=== PATIENT | male | born 1960 | race Caucasian/White ===

== ENCOUNTER 2017-08-22 08:58 | Observation (INO) | payer BC, OTHER ==
--- NOTE | 2017-08-22 09:53 | ER Document Report ---
ED General - General Chief Complaint: Chest Pain Stated Complaint: SHOULDER PAIN Time Seen by Provider: 08/22/17 09:47 Mode of Arrival: Medic Information source: Patient Notes: 57 yo morbidly obese, ex smoker, non hyperlipedemic, htn, pre diabetic, c/o left scapular chest pain, and shortness of breath, radiating into left arm since 2400 last night, couldn't get comfortable. When woke up this am at 0600, pain was worse. At 1800 disortiented felt out of sorts had planned to head home and ended up at his daughters house. Chest tightness left retrosternal and cold sweats intermittently during the day, episodes lasting few seconds. PSH: Negative FMH: grandfather [place], dad pacemaker, CVA. NKA, occ. alcohol, no drugs. TRAVEL OUTSIDE OF THE [place] IN LAST 30 DAYS: No - Related Data Allergies/Adverse Reactions: No Known Allergies Allergy (Verified 08/22/17 10:07) Past Medical History - General Information source: Patient - Social History Smoking Status: Former Smoker Chew tobacco use (# tins/day): No Frequency of alcohol use: Occasional Drug Abuse: None Lives with: Spouse/Significant other Family History: CAD, CVA - Past Medical History Cardiac Medical History: Reports: Hx Hypertension Endocrine Medical History: Reports: Other - pre diabetes Renal/ Medical History: Reports: Hx Kidney Stones. Denies: Hx Peritoneal Dialysis Musculoskeltal Medical History: Reports Hx Arthritis Surgical Hx: Negative - Immunizations Hx Diphtheria, Pertussis, Tetanus Vaccination: Yes - 2014 Review of Systems - Review of Systems Constitutional: No symptoms reported EENT: No symptoms reported Cardiovascular: See HPI Respiratory: No symptoms reported Gastrointestinal: No symptoms reported Genitourinary: No symptoms reported Male Genitourinary: No symptoms reported Musculoskeletal: See HPI Skin: No symptoms reported Hematologic/Lymphatic: No symptoms reported Neurological/Psychological: No symptoms reported Physical Exam - Vital signs Vitals: Temp Pulse Resp BP Pulse Ox 97.6 F 78 16 138/99 H 93 08/22/17 09:15 08/22/17 09:15 08/22/17 09:15 08/22/17 09:15 08/22/17 09:15 Interpretation: Normal, Hypertensive - General General appearance: Appears well, Alert In distress: None - HEENT Head: Normocephalic, Atraumatic Eyes: Normal Pupils: PERRL Neck: No: Lymphadenopathy - Respiratory Respiratory status: No respiratory distress Chest status: Nontender Breath sounds: Normal Chest palpation: Normal - Cardiovascular Rhythm: Regular Heart sounds: Normal auscultation Murmur: No - Abdominal Inspection: Morbidly Obese Distension: No distension Bowel sounds: Normal Tenderness: Nontender Organomegaly: No organomegaly Notes: reducible umbilical hernia - Back Back: Normal, Nontender. No: Tender - Extremities General upper extremity: Normal inspection, Nontender, Normal color, Normal ROM , Normal temperature General lower extremity: Normal inspection, Nontender, Normal color, Normal ROM , Normal temperature, Normal weight bearing. No: Sarthak's sign - Neurological Neuro grossly intact: Yes Cognition: Normal Orientation: AAOx4 Torie Coma Scale Eye Opening: Spontaneous Torie Coma Scale Verbal: Oriented Torie Coma Scale Motor: Obeys Commands [place] Coma Scale Total: 15 Speech: Normal Motor strength normal: LUE, RUE, LLE, RLE Sensory: Normal - Psychological Associated symptoms: Normal affect, Normal mood - Skin Skin Temperature: Warm Skin Moisture: Dry Skin Color: Normal Skin irregularity: negative: Rash Course - Re-evaluation Re-evalutation: 08/22/17 13:[address] Ware, will admit to [facility] observation bed 08/22/17 13:05 Chest x-ray shows possible early vascular congestion, EKG was normal sinus rhythm patient is willing to be admitted. - Vital Signs Vital signs: Temp Pulse Resp BP Pulse Ox 97.6 F 78 15 158/94 H 96 08/22/17 09:15 08/22/17 09:15 08/22/17 12:52 08/22/17 12:52 08/22/17 12:59 - Laboratory Result Diagrams: 08/22/17 09:52 08/22/17 09:52 Laboratory results interpreted by me: 08/22/17 08/22/17 08/22/17 09:52 09:52 09:52 RDW 15.4 H BUN 23 H Glucose 117 H Creatine Kinase 187 H Discharge - Discharge Clinical Impression: chest pain Condition: Good Disposition: ADMITTED OBSERVATION Admitting Provider: Hospitalist Unit Admitted: Telemetry
--- NOTE | 2017-08-22 10:02 | EKG REPORT ---
SEVERITY:- ABNORMAL ECG - SINUS RHYTHM FIRST DEGREE AV BLOCK NONSPECIFIC INTRAVENTRICULAR CONDUCTION DELAY ABNRM R PROG, CONSIDER ASMI OR LEAD PLACEMENT : Confirmed by: Adrienne Gay MD 22-Aug-2017 10:01:47
[2017-08-22 10:08] LABS: ABSOLUTE EOSINOPHILS # (AUTO) 0.1 10^3/uL (0.0-0.6); ABSOLUTE LYMPHOCYTES (AUTO) 1.2 10^3/uL (0.5-4.7); ABSOLUTE MONOCYTES (AUTO) 0.5 10^3/uL (0.1-1.4); ABSOLUTE NEUT (AUTO) 6.1 10^3/uL (1.7-8.2); BASOPHILS % (AUTO) 0.4 % (0-2); EOSINOPHILS % (AUTO) 0.8 % (0-6); HEMOGLOBIN 15.1 g/dL (13.5-17.0); HGB HCT DIFFERENCE 1.3; MEAN CORPUSCULAR HEMOGLOBIN 29.6 pg (27.0-33.4); MEAN CORPUSCULAR HGB CONC 34.3 g/dL (32.0-36.0); MEAN CORPUSCULAR VOLUME 86 fl (80-97); MONOCYTES % (AUTO) 6.1 % (3-13); RED CELL DISTRIBUTION WIDTH 15.4 % (11.5-14.0); SEGMENTED NEUTROPHILS % (AUTO) 77.7 % (42-78); WHITE BLOOD COUNT 7.9 10^3/uL (4.0-10.5)
[2017-08-22 10:36] LABS: ALANINE AMINOTRANSFERASE 46 U/L (21-72); ALBUMIN 4.4 g/dL (3.5-5.0); ALKALINE PHOSPHATASE 64 U/L (38-126); ANION GAP 9 (5-19); ASPARTATE AMINO TRANSFERASE 25 U/L (17-59); BILIRUBIN,DIRECT 0.4 mg/dL (0.0-0.4); BILIRUBIN,TOTAL 0.8 mg/dL (0.2-1.3); BLOOD UREA NITROGEN 23 mg/dL (7-20); CALCIUM 9.7 mg/dL (8.4-10.2); CARBON DIOXIDE 28 mmol/L (22-30); CHLORIDE 103 mmol/L (98-107); CREATININE RESULT 0.83 mg/dL (0.52-1.25); GLUCOSE 117 mg/dL (75-110); POTASSIUM 4.8 mmol/L (3.6-5.0); SODIUM 139.8 mmol/L (137-145); TOTAL PROTEIN 7.1 g/dL (6.3-8.2)
--- NOTE | 2017-08-22 10:44 | RADIOLOGY REPORT (SQ) ---
EXAM DESCRIPTION: CHEST PA/LAT COMPLETED DATE/TIME: 08/22/2017 10:33 am REASON FOR STUDY: cp COMPARISON: None. EXAM PARAMETERS: NUMBER OF VIEWS: two views TECHNIQUE: Digital Frontal and Lateral radiographic views of the chest acquired. RADIATION DOSE: NA LIMITATIONS: none FINDINGS: LUNGS AND PLEURA: No opacities, masses or pneumothorax. No pleural effusion. MEDIASTINUM AND HILAR STRUCTURES: No masses or contour abnormalities. HEART AND VASCULAR STRUCTURES: Heart normal size. Central vascular prominence. BONES: No acute findings. HARDWARE: None in the chest. OTHER: No other significant finding. IMPRESSION: POSSIBLE EARLY VASCULAR CONGESTION. NO OTHER SIGNIFICANT FINDINGS. TECHNICAL DOCUMENTATION: JOB ID: [id number] [employer]- All Rights Reserved
[2017-08-22] MEDS ORDERED: ASPIRIN 81 MG TABLET, CHEWABLE PO ONE (13:10)
[2017-08-22] MEDS ORDERED: NITROGLYCERIN 0.4 MG/TAB 25 TAB/BOTTLE SL PRN (13:11)
[2017-08-22] MEDS ORDERED: ONDANSETRON HCL INJ/PF 4 MG/2 ML SDV IV PRN (13:20)
[2017-08-22] MEDS ORDERED: MUPIROCIN 2% OINTMENT 22 GM TP PRN (13:24)
[2017-08-22] MEDS ORDERED: LANSOPRAZOLE 30 MG TAB.RAP.DR PO ONE (13:45)
[2017-08-22] MEDS ORDERED: NITROGLYCERIN 2% OINTMENT 1 GM PACKET TP ONE (13:45)
[2017-08-22] MEDS ORDERED: LORAZEPAM 1 MG TABLET PO PRN (13:45)
[2017-08-22] MEDS ORDERED: TRAMADOL HCL 50 MG TABLET PO PRN (13:45)
[2017-08-22] MEDS ORDERED: FUROSEMIDE INJ/PF 20 MG/2 ML SDV IV ONE (14:30)
--- NOTE | 2017-08-22 14:30 | PDOC H&P ---
History of Present Illness Admission Date/PCP: 08/22/17 ARIC Wong History of Present Illness: CARMELO SIDHU is a 57 year old male with a history of hypertension, untreated sleep apnea, hypertension, borderline diabetes mellitus, anxiety, chronic pain who presents emergency department with several weeks of chest pain. He reports that yesterday he began having an episode of disorientation which she describes as an out of body experience. He reports that he normally does sleep in a recliner hospital bed. He reports that he has been having substernal chest pain that is a pressure-like sensation that radiates down his left arm. He reports that it began last night to get worse. He took his normal medications and this did not help he tried ice and this also did not help. He reports it was worse at about 6 AM this morning. It was associated with some shortness of breath, dyspnea on exertion, and he has noticed some increased leg swelling, but reports that his legs have been more swollen over the past week but today are somewhat improved. He does report he has had an outpatient echo, but cannot recall where he had it done at. He also reports recent lab work from his primary care physician. Patient is referred to hospital service for chest pain Past Medical History Cardiac Medical History: Reports: Hypertension Pulmonary Medical History: Reports: Sleep Apnea Endocrine Medical History: Reports: Obesity, Other - pre diabetes Renal/ Medical History: Reports: Nephrolithiasis Musculoskeltal Medical History: Reports: Arthritis, Other - Chronic pain Past Surgical History Past Surgical History: Reports: None Social History Lives with: Spouse/Significant other Smoking Status: Former Smoker Frequency of Alcohol Use: None Amount of Alcoholic Beverages Per Day: Quit drinking 28 years ago Drugs: Other - cbd oil Hx Prescription Drug Abuse: No - Advance Directive Resuscitation Status: Full Code Surrogate healthcare decision maker:: cheo, Family History Family History: CAD, CVA Parental Family History Reviewed: Yes Children Family History Reviewed: Yes Sibling(s) Family History Reviewed.: Yes Medication/Allergy Home Medications: Benazepril HCl 40 mg PO DAILY 08/22/17 Buspirone HCl 10 mg PO DAILY 08/22/17 Diclofenac Sodium [Diclofenac Sodium ER] 100 mg PO DAILY 08/22/17 Doxazosin Mesylate 4 mg PO DAILY 08/22/17 Furosemide [Lasix] 20 mg PO DAILY 08/22/17 Lorazepam 1 mg PO TID PRN 08/22/17 Mupirocin [Bactroban 2% Ointment 22 gm] 1 applic TP TID PRN 08/22/17 Tramadol HCl [Ultram 50 mg Tablet] 50 mg PO TID PRN 08/22/17 Allergies/Adverse Reactions: No Known Allergies Allergy (Verified 08/22/17 10:07) Review of Systems Constitutional: PRESENT: weight gain - 85lbs due to inactivity. ABSENT: chills , fever(s), headache(s), night sweats, weakness, weight loss Eyes: ABSENT: visual disturbances Ears: ABSENT: hearing changes Cardiovascular: PRESENT: chest pain, dyspnea on exertion, edema, orthropnea. ABSENT: palpitations Respiratory: PRESENT: dyspnea. ABSENT: cough, hemoptysis, sputum Gastrointestinal: ABSENT: abdominal pain, constipation, diarrhea, dysphagia, heartburn, hematemesis, hematochezia, melena, nausea, vomiting Genitourinary: ABSENT: dysuria, hematuria, nocturia Musculoskeletal: PRESENT: back pain. ABSENT: joint swelling Integumentary: ABSENT: rash, wounds Neurological: ABSENT: abnormal gait, abnormal speech, confusion, dizziness, focal weakness, syncope Psychiatric: ABSENT: anxiety, depression, homidical ideation, suicidal ideation Endocrine: ABSENT: cold intolerance, heat intolerance, polydipsia, polyuria Hematologic/Lymphatic: ABSENT: easy bleeding, easy bruising Physical Exam Vital Signs: Temp Pulse Resp BP Pulse Ox 97.6 F 78 15 158/94 H 96 08/22/17 09:15 08/22/17 09:15 08/22/17 12:52 08/22/17 12:52 08/22/17 12:59 Intake & Output 08/21/17 08/22/17 08/23/17 06:59 06:59 06:59 Weight 163.293 kg General appearance: PRESENT: mild distress, morbidly obese, well-developed, well -nourished Head exam: PRESENT: atraumatic, normocephalic Eye exam: PRESENT: conjunctiva pink, EOMI, PERRLA. ABSENT: conjunctival injection, scleral icterus Ear exam: PRESENT: normal external ear exam Mouth exam: PRESENT: moist, tongue midline Neck exam: ABSENT: JVD, lymphadenopathy, thyromegaly, tracheal deviation Respiratory exam: PRESENT: clear to auscultation wendi, unlabored. ABSENT: accessory muscle use, rales, rhonchi, tachypnea, wheezes Cardiovascular exam: PRESENT: RRR, +S1, +S2. ABSENT: diastolic murmur, gallop, rubs, systolic murmur Pulses: PRESENT: normal dorsalis pedis pul Vascular exam: PRESENT: normal capillary refill GI/Abdominal exam: PRESENT: normal bowel sounds, soft. ABSENT: distended, firm , guarding, mass, organolmegaly, rebound, rigid, tenderness Rectal exam: PRESENT: deferred Extremities exam: PRESENT: full ROM, +1 edema. ABSENT: calf tenderness, clubbing Neurological exam: PRESENT: alert, awake, oriented to person, oriented to place , oriented to time, oriented to situation, CN II-XII grossly intact. ABSENT: motor sensory deficit Psychiatric exam: PRESENT: appropriate affect, normal mood. ABSENT: homicidal ideation, suicidal ideation Skin exam: PRESENT: dry, intact, warm. ABSENT: cyanosis, rash Results Laboratory Results: 08/22/17 09:52 08/22/17 09:52 08/22/17 08/22/17 09:52 09:52 WBC 7.9 RBC 5.10 Hgb 15.1 Hct 44.0 MCV 86 MCH 29.6 MCHC 34.3 RDW 15.4 H Plt Count 201 Seg Neutrophils % 77.7 Lymphocytes % 15.0 Monocytes % 6.1 Eosinophils % 0.8 Basophils % 0.4 Absolute Neutrophils 6.1 Absolute Lymphocytes 1.2 Absolute Monocytes 0.5 Absolute Eosinophils 0.1 Absolute Basophils 0.0 Sodium 139.8 Potassium 4.8 Chloride 103 Carbon Dioxide 28 Anion Gap 9 BUN 23 H Creatinine 0.83 Est GFR ( Amer) > 60 Est GFR (Non-Af Amer) > 60 Glucose 117 H Calcium 9.7 Total Bilirubin 0.8 AST 25 ALT 46 Alkaline Phosphatase 64 Total Protein 7.1 Albumin 4.4 08/22/17 08/22/17 08/22/17 09:52 09:52 09:52 Creatine Kinase 187 H CK-MB (CK-2) 1.94 Troponin I < 0.012 Impressions: Chest X-Ray 08/22/17 09:47 IMPRESSION: POSSIBLE EARLY VASCULAR CONGESTION. NO OTHER SIGNIFICANT FINDINGS. Assessment & Plan - Diagnosis (1) Chest pain Qualifiers: Chest pain type: precordial pain Qualified Code(s): R07.2 - Precordial pain Is this a current diagnosis for this admission?: Yes Plan: Place patient on telemetry observation and monitor serial cardiac enzymes. Patient is on benazepril, add aspirin, metoprolol, nitroglycerin. Cardiolite stress test in the a.m. if cardiac enzymes are negative. Will attempt to obtain outside echocardiogram. (2) Borderline diabetes mellitus Is this a current diagnosis for this admission?: Yes Plan: Carb control diet (3) Hypertension Qualifiers: Hypertension type: essential hypertension Qualified Code(s): I10 - Essential (primary) hypertension Is this a current diagnosis for this admission?: Yes Plan: Continue home doxazosin, Lasix, benazepril. (4) Obstructive sleep apnea Is this a current diagnosis for this admission?: Yes Plan: Patient reports that he was previously diagnosed with severe obstructive sleep apnea. He reports he was intolerant to the mask at that time. Since that time patient has gained 85 pounds. Patient will require outpatient sleep study. (5) Chronic pain Qualifiers: Chronic pain type: chronic pain syndrome Qualified Code(s): G89.4 - Chronic pain syndrome Is this a current diagnosis for this admission?: Yes Plan: Continue tramadol (6) Anxiety disorder Qualifiers: Anxiety disorder type: unspecified anxiety disorder Qualified Code(s): F41.9 - Anxiety disorder, unspecified Is this a current diagnosis for this admission?: Yes Plan: Continue home Ativan (7) Morbid obesity with BMI of 50.0-59.9, adult Is this a current diagnosis for this admission?: Yes Plan: Dietary consult - Time Time Spent: 50 to 70 Minutes Medications reviewed and adjusted accordingly: Yes Anticipated discharge: Home Within: within 48 hours - Inpatient Certification Based on my medical assessment, after consideration of the patient's comorbidities, presenting symptoms, or acuity I expect that the services needed warrant INPATIENT care.: No I certify that my determination is in accordance with my understanding of Medicare's requirements for reasonable and necessary INPATIENT services [42 CFR 412.3e].: No Medical Necessity: Need For Continuous Telemetry Monitoring Post Hospital Care: D/C Teacher Specialist Documentation
[2017-08-22 15:34] LABS: URINE BARBITURATES SCREEN NEGATIVE; URINE METHADONE SCREEN NEGATIVE; URINE OPIATES LOW NEGATIVE; URINE PHENCYCLIDINE SCREEN NEGATIVE
[2017-08-22 17:19] LABS: CREATINE KINASE MB 4.24 ng/mL (<4.55)
[2017-08-22 17:27] LABS: TROPONIN I 0.436 ng/mL
[2017-08-22] MEDS ORDERED: DOCUSATE SODIUM 100 MG CAPSULE PO SCH (18:00)
[2017-08-22] MEDS ORDERED: NITROGLYCERIN 2% OINTMENT 1 GM PACKET TP SCH (18:00)
[2017-08-22] MEDS ORDERED: HEPARIN SOD (PORCINE) 1,000 UNIT/ML 10 ML VIAL IV PRN (18:46)
[2017-08-22] MEDS ORDERED: HEPARIN SODIUM,PORCINE/D5W 25,000 UNIT/250 ML RTUINJ IV PRN (18:46)
[2017-08-22] MEDS ORDERED: MORPHINE SULFATE 10 MG/ML INJ IV PRN (19:02)
[2017-08-22 19:14] LABS: ABSOLUTE EOSINOPHILS # (AUTO) 0.1 10^3/uL (0.0-0.6); ABSOLUTE LYMPHOCYTES (AUTO) 1.9 10^3/uL (0.5-4.7); ABSOLUTE MONOCYTES (AUTO) 0.6 10^3/uL (0.1-1.4); ABSOLUTE NEUT (AUTO) 5.9 10^3/uL (1.7-8.2); BASOPHILS % (AUTO) 0.6 % (0-2); EOSINOPHILS % (AUTO) 1.5 % (0-6); HEMATOCRIT 42.2 % (37.9-51.0); HEMOGLOBIN 14.3 g/dL (13.5-17.0); HGB HCT DIFFERENCE 0.7; LYMPHOCYTES % (AUTO) 22.1 % (13-45); MEAN CORPUSCULAR HEMOGLOBIN 29.3 pg (27.0-33.4); MEAN CORPUSCULAR HGB CONC 33.9 g/dL (32.0-36.0); MEAN CORPUSCULAR VOLUME 86 fl (80-97); MONOCYTES % (AUTO) 6.9 % (3-13); RED BLOOD COUNT 4.88 10^6/uL (4.35-5.55); SEGMENTED NEUTROPHILS % (AUTO) 68.9 % (42-78); WHITE BLOOD COUNT 8.6 10^3/uL (4.0-10.5)
[2017-08-22] MEDS ORDERED: HEPARIN SOD (PORCINE) 1,000 UNIT/ML 10 ML VIAL IV ONE (19:30)
[2017-08-22 19:31] LABS: PROTHROMBIN TIME 13.4 SEC (11.4-15.4)
[2017-08-22 19:32] LABS: PARTIAL THROMBOPLASTIN TIME 31.7 SEC (23.5-35.8)
--- NOTE | 2017-08-22 20:01 | PDOC CONSULTATION ---
Consultation Consult Date: 08/22/17 Attending physician:: MICKEY TIDWELL Consult reason:: Chest pain History of Present Illness Admission Date/PCP: 08/22/17 13:11 Patient complains of: Chest pain and shortness of breath History of Present Illness: CARMELO SIDHU is a 57 year old male with a history of hypertension, untreated sleep apnea, hypertension, borderline diabetes mellitus, anxiety, chronic pain who presents emergency department with several weeks of chest pain. He reports that yesterday he began having an episode of disorientation which she describes as an out of body experience. He reports that he normally does sleep in a recliner hospital bed. He reports that he has been having substernal chest pain that is a pressure-like sensation that radiates down his left arm. He reports that it began last night to get worse. He took his normal medications and this did not help he tried ice and this also did not help. He reports it was worse at about 6 AM this morning. It was associated with some shortness of breath, dyspnea on exertion, and he has noticed some increased leg swelling, but reports that his legs have been more swollen over the past week but today are somewhat improved. He does report he has had an outpatient echo, but cannot recall where he had it done at. He also reports recent lab work from his primary care physician. Patient denied any family history of premature coronary artery disease but claims that there is history of pulmonary embolism in his mother. Past Medical History Cardiac Medical History: Reports: Hypertension Pulmonary Medical History: Reports: Sleep Apnea Endocrine Medical History: Reports: Obesity, Other - pre diabetes Renal/ Medical History: Reports: Nephrolithiasis Musculoskeltal Medical History: Reports: Arthritis, Other - Chronic pain Psychiatric Medical History: Denies: Depression Past Surgical History Past Surgical History: Reports: None Social History Information Source: Patient Lives with: Spouse/Significant other Smoking Status: Former Smoker Last Time Smoked: 1989 Frequency of Alcohol Use: None Drugs: Other - cbd oil Hx Prescription Drug Abuse: No - Advance Directive Resuscitation Status: Full Code Family History Family History: CAD, CVA, Other - Pulmonary embolism Parental Family History Reviewed: Yes Children Family History Reviewed: Yes Sibling(s) Family History Reviewed.: Yes Medication/Allergy Home Medications: Benazepril HCl 40 mg PO DAILY 08/22/17 Buspirone HCl 10 mg PO BID 09/28/17 Compound 1 applic TP QID 08/22/17 Diclofenac Sodium [Diclofenac Sodium ER] 100 mg PO DAILY 08/22/17 Doxazosin Mesylate 4 mg PO DAILY 08/22/17 Furosemide [Lasix] 20 mg PO DAILY 08/22/17 Lorazepam 1 mg PO TID PRN 08/22/17 Mupirocin [Bactroban 2% Ointment 22 gm] 1 applic TP TID 08/22/17 Tramadol HCl [Ultram 50 mg Tablet] 50 mg PO TID PRN 08/22/17 Allergies/Adverse Reactions: No Known Allergies Allergy (Verified 08/22/17 10:07) Review of Systems Review of Systems: Please see history of present illness and past medical history as wall. Constitutional: No fever or chills reported. Head : No recent chronic headaches, recent head injury. Eyes: No recent eye pain, diplopia, redness, discharge, acute visual changes. Ears: No recent chronic ear pain, acute hearing loss, ear discharge. Oral cavity: No recent ulcerations, bleeding, oral cavity discomfort. Neck: No recent acute neck pain reported. Hematologic: No recent easy bruising or bleeding or hematologic malignancy reported. Lymphatic: No recent lymphatic malignancy, chronic lymphadenopathy reported yet Cardiovascular system review: See history of present illness. Respiratory system review: No recent chronic cough, hemoptysis, blood clots in the lungs reported. Mild Shortness of breath on exertion. Intermittent pedal edema. Gastrointestinal system review: Negative for any recent acute or chronic abdominal pain, hematemesis, melena, recent change in bowel habits. Genitourinary system review: No recent acute or chronic hematuria, flank pain, UTI etc. reported. Skin system review: Negative for any recent abnormal bruising, no rash, no pruritus reported. Neurologic: No prior history of strokes, mini strokes, seizure disorder. Psychologic: No history of major psychosis or major depression reported. Musculoskeletal: Minor aches and pains reported. No acute joint swelling reported. Endocrine: No recent polyuria, polydipsia, recent heat or cold intolerance. History of loud snoring, difficulty falling asleep and staying asleep. Physical Exam Vital Signs: Temp Pulse Resp BP Pulse Ox 97.7 F 73 20 134/85 H 97 08/22/17 15:56 08/22/17 16:00 08/22/17 15:56 08/22/17 15:56 08/22/17 17:44 Intake & Output 08/21/17 08/22/17 08/23/17 06:59 06:59 06:59 Intake Total 0 Balance 0 Exam: GENERAL: well-nourished and in no acute distress. Alert and oriented x3 HEAD: Atraumatic, normocephalic. EYES: Pupils equal round and reactive to light, extraocular movements intact, sclera anicteric, conjunctiva are normal. ENT: TMs normal, nares patent, oropharynx clear without exudates. Moist mucous membranes. No oral ulcerations or bleeding gums noted NECK: supple without lymphadenopathy. Trachea is central. No cervical or axillary lymphadenopathy noted. Carotids are 2+, JVD WNL LUNGS: Respiration seems nonlabored, no significant accessory muscle action noted. Breath sounds clear to auscultation bilaterally and equal noted. No wheezes rales or rhonchi noted. No significant dullness noted on percussion. CHEST: Palpation of the chest wall shows no significant chest wall tenderness. No other significant abnormalities noted. HEART: Duff FACULTY RESEARCH ASSISTANT, No PSH, 1/6 RON aortic area, 1/6 ramirez systolic murmur mitral area, no rubs, no gallops. ABDOMEN: Soft, no significant tenderness appreciated, normoactive bowel sounds. No guarding, no rebound. No rigidity noted . No masses appreciated. EXTREMITIES: Pedal pulses are 1-2+, no calf tenderness noted. No clubbing or cyanosis. 1+ pedal edema noted NEUROLOGICAL: Focused neurological exam showed no significant neurologic deficit. Normal speech, no focal weakness appreciated. PSYCH: Normal mood, normal affect. Judgment and insight within normal limits. SKIN: No significant ecchymosis, rash, ulcerations or signs of pruritus noted. MUSCULOSKELETAL EXAM: No significant joint swelling noted. Results Laboratory Results: 08/22/17 19:03 08/22/17 19:03 WBC 8.6 RBC 4.88 Hgb 14.3 Hct 42.2 MCV 86 MCH 29.3 MCHC 33.9 RDW 15.0 H Plt Count 188 Seg Neutrophils % 68.9 Lymphocytes % 22.1 Monocytes % 6.9 Eosinophils % 1.5 Basophils % 0.6 Absolute Neutrophils 5.9 Absolute Lymphocytes 1.9 Absolute Monocytes 0.6 Absolute Eosinophils 0.1 Absolute Basophils 0.0 08/22/17 16:30 CK-MB (CK-2) 4.24 Troponin I 0.436 EKG Comments: Sinus rhythm, no acute ST-T wave changes noted. Impressions: Chest X-Ray 08/22/17 09:47 IMPRESSION: POSSIBLE EARLY VASCULAR CONGESTION. NO OTHER SIGNIFICANT FINDINGS. Assessment & Plan - Diagnosis (1) NSTEMI (non-ST elevated myocardial infarction) Is this a current diagnosis for this admission?: Yes (2) Chest pain Qualifiers: Chest pain type: precordial pain Qualified Code(s): R07.2 - Precordial pain Is this a current diagnosis for this admission?: Yes (3) Hypertension Qualifiers: Hypertension type: essential hypertension Qualified Code(s): I10 - Essential (primary) hypertension Is this a current diagnosis for this admission?: Yes (4) Morbid obesity with BMI of 50.0-59.9, adult Is this a current diagnosis for this admission?: Yes (5) Obstructive sleep apnea Is this a current diagnosis for this admission?: Yes (6) Borderline diabetes mellitus Is this a current diagnosis for this admission?: Yes - Notes Notes: Non-STEMI: Patient does have a suggestive history and also positive troponin I elevation. Patient however does not have any significant EKG changes and currently chest pain-free. Differential diagnosis discussed. Patient is on transfer list to [facility] for cardiac cath. Patient's medical regimen reviewed. Continue current regimen. It may be worthwhile to consider ruling out pulmonary embolism since patient does have risk factors especially in the absence of significant EKG changes and history of intermittent pedal edema. However this could be performed at the other institution if needed. Chest pain: Currently resolved. Continue current regimen. Most likely related to coronary artery disease and non-STEMI. Hypertension: Reasonably well controlled. Blood pressure goal in this patient is 135/85 or less. This was discussed with the patient. Currently blood pressure under reasonable control. Better medication for this patient are JOSEPH inhibitor/ARB/beta freda etc. discussed side effects of uncontrolled hypertension and also severe hypotension. Obesity: Patient encouraged in weight loss. Obstructive sleep apnea: Patient will benefit from sleep study and going on CPAP therapy. Diabetes: Currently borderline. Patient advised weight loss, regular walking program, carbohydrate restriction. Discussed that treatment of sleep apnea often help prevent diabetes or lead to better control. - Time Time Spent: 30 to 50 Minutes - CODE STATUS was discussed, patient remains full code. Multiple medical problems were addressed. More than 50% of the time spent coordinating care, discussing management plans with involved caregivers. Management plans discussed with involved personnels. Medical decision making was of moderate to high complexity, patient's has multiple comorbidities. Medications reviewed and adjusted accordingly: Yes
[2017-08-22] MEDS ORDERED: ACETAMINOPHEN 325 MG TABLET PO PRN (20:22)
--- NOTE | 2017-08-22 20:24 | PDOC TRANSFER SUMMARY ---
General Admission Date/PCP: 08/22/17 13:11 Admission Date: 08/22/17 Transfer Date: 08/22/17 Accepting Facility: [facility] Accepting Physician: Dr. Gonzalez Resuscitation Status: Full Code - Transfer Diagnosis (1) NSTEMI (non-ST elevated myocardial infarction) Is this a current diagnosis for this admission?: Yes (2) Borderline diabetes mellitus Is this a current diagnosis for this admission?: Yes (3) Hypertension Is this a current diagnosis for this admission?: Yes (4) Obstructive sleep apnea Is this a current diagnosis for this admission?: Yes (5) Chronic pain Is this a current diagnosis for this admission?: Yes (6) Anxiety disorder Is this a current diagnosis for this admission?: Yes (7) Morbid obesity with BMI of 50.0-59.9, adult Is this a current diagnosis for this admission?: Yes - Transfer Medications Home Medications: Benazepril HCl 40 mg PO DAILY 08/22/17 Buspirone HCl 10 mg PO BID 08/22/17 Compound 1 applic TP QID 08/22/17 Diclofenac Sodium [Diclofenac Sodium ER] 100 mg PO DAILY 08/22/17 Doxazosin Mesylate 4 mg PO DAILY 08/22/17 Furosemide [Lasix] 20 mg PO DAILY 08/22/17 Lorazepam 1 mg PO TID PRN 08/22/17 Mupirocin [Bactroban 2% Ointment 22 gm] 1 applic TP TID 08/22/17 Tramadol HCl [Ultram 50 mg Tablet] 50 mg PO TID PRN 08/22/17 Transfer Medications: Current Medications Aspirin (Ecotrin 325 Mg Ec Tablet) 325 mg PO DAILY OBIE Stop: 09/22/17 09:59 Atorvastatin Calcium (Lipitor 80 Mg Tablet) 80 mg PO QHS OBIE Stop: 09/21/17 21:59 Benazepril HCl (Lotensin 20 Mg Tablet) 40 mg PO DAILY OBIE Stop: 09/22/17 09:59 Buspirone HCl (Buspar 10 Mg Tablet) 10 mg PO DAILY OBIE Stop: 09/22/17 09:59 Clopidogrel Bisulfate (Plavix 75 Mg Tablet) 75 mg PO NOW ONE Stop: 08/22/17 20:31 Docusate Sodium (Colace 100 Mg Capsule) 100 mg PO BID OBIE Stop: 09/21/17 17:59 Doxazosin Mesylate (Cardura 4 Mg Tablet) 4 mg PO DAILY OBIE Stop: 09/22/17 09:59 Furosemide (Lasix 20 Mg Tablet) 20 mg PO DAILY OBIE Stop: 09/22/17 09:59 Heparin Sodium (Porcine) (Heparin Inj 1,000 Unit/Ml 10 Ml Vial) 0 - 12,000 unit IV .BOLUS PER PROTOCOL PRN; Protocol PRN Reason: RESPOND TO aPTT VALUE Stop: 09/21/17 18:45 Heparin Sodium/Dextrose (Heparin Rtu 25,000 Unit/250 Ml D5w Premix) 25,000 unit in 250 mls @ 0 mls/hr IV CONTINUOUS PRN; Protocol; Titrate PRN Reason: THIS MED IS NOT "PRN" Stop: 09/21/17 18:45 Lansoprazole (Prevacid 30 Mg Odt Tablet) 30 mg PO Q6AM OBIE Stop: 09/22/17 05:59 Lisinopril (Prinivil 10 Mg Tablet) 10 mg PO DAILY OBIE Stop: 09/22/17 09:59 Lorazepam (Ativan 1 Mg Tablet) 1 mg PO TIDP PRN PRN Reason: ANXIETY Stop: 08/29/17 13:44 Morphine Sulfate (Morphine 10 Mg/Ml Inj) 4 mg IV Q4HP PRN Stop: 08/29/17 19:01 Mupirocin (Bactroban 2% Ointment 22 Gm) 1 applic TP TIDP PRN Stop: 09/21/17 13:23 Nitroglycerin (Nitrostat 0.4 Mg (1/150 Gr) Tabs 25/Bottle) 1 tab SL Q5MP PRN PRN Reason: chest pain Nitroglycerin (Nitrol 2% Ointment 1gm Packet) 1 gm TP Q6 OBIE Stop: 09/21/17 17:59 Ondansetron HCl (Zofran Inj/Pf 4 Mg/2 Ml Sdv) 4 mg IV Q6HP PRN PRN Reason: nausea Stop: 09/21/17 13:19 Sodium Chloride (Saline Flush 2.5 Ml Monoject Prefil Syrin) 2.5 ml IV Q8 OBIE Stop: 09/21/17 13:59 Last Admin: 08/22/17 14:00 Dose: 2.5 ml Tramadol HCl (Ultram 50 Mg Tablet) 50 mg PO TIDP PRN PRN Reason: PAIN Stop: 08/29/17 13:44 - Allergies Allergies/Adverse Reactions: No Known Allergies Allergy (Verified 08/22/17 10:07) Hospital Course Hospital Course: CARMELO SIDHU is a 57 year old male with a history of hypertension, untreated sleep apnea, hypertension, borderline diabetes mellitus, anxiety, chronic pain who presents emergency department with several weeks of chest pain. He reports that yesterday he began having an episode of disorientation which she describes as an out of body experience. He reports that he normally does sleep in a recliner hospital bed. He reports that he has been having substernal chest pain that is a pressure-like sensation that radiates down his left arm. He reports that it began last night to get worse. He took his normal medications and this did not help he tried ice and this also did not help. He reports it was worse at about 6 AM this morning. It was associated with some shortness of breath, dyspnea on exertion, and he has noticed some increased leg swelling, but reports that his legs have been more swollen over the past week but today are somewhat improved. He does report he has had an outpatient echo, but cannot recall where he had it done at. He also reports recent lab work from his primary care physician. Patient is referred to hospital service for chest pain. Patient second set of enzymes elevated to TPI- 0.463. Patient currently chest pain free. No ST segment changes, but with poor r wave progression and couplet PVC seen on telemetry. patient in agreement with transfer. Physical Exam Vital Signs: Temp Pulse Resp BP Pulse Ox 97.7 F 73 20 134/85 H 97 08/22/17 15:56 08/22/17 16:00 08/22/17 15:56 08/22/17 15:56 08/22/17 17:44 Intake & Output 08/21/17 08/22/17 08/23/17 06:59 06:59 06:59 Intake Total 0 Balance 0 Exam: General appearance: PRESENT: mild distress, morbidly obese, well-developed, well -nourished Head exam: PRESENT: atraumatic, normocephalic Eye exam: PRESENT: conjunctiva pink, EOMI, PERRLA. ABSENT: conjunctival injection, scleral icterus Ear exam: PRESENT: normal external ear exam Mouth exam: PRESENT: moist, tongue midline Neck exam: ABSENT: JVD, lymphadenopathy, thyromegaly, tracheal deviation Respiratory exam: PRESENT: clear to auscultation wendi, unlabored. ABSENT: accessory muscle use, rales, rhonchi, tachypnea, wheezes Cardiovascular exam: PRESENT: RRR, +S1, +S2. ABSENT: diastolic murmur, gallop, rubs, systolic murmur Pulses: PRESENT: normal dorsalis pedis pul Vascular exam: PRESENT: normal capillary refill GI/Abdominal exam: PRESENT: normal bowel sounds, soft. ABSENT: distended, firm , guarding, mass, organolmegaly, rebound, rigid, tenderness Rectal exam: PRESENT: deferred Extremities exam: PRESENT: full ROM, +1 edema. ABSENT: calf tenderness, clubbing Neurological exam: PRESENT: alert, awake, oriented to person, oriented to place , oriented to time, oriented to situation, CN II-XII grossly intact. ABSENT: motor sensory deficit Psychiatric exam: PRESENT: appropriate affect, normal mood. ABSENT: homicidal ideation, suicidal ideation Skin exam: PRESENT: dry, intact, warm. ABSENT: cyanosis, rash Results Laboratory Results: 08/22/17 19:03 08/22/17 19:03 WBC 8.6 RBC 4.88 Hgb 14.3 Hct 42.2 MCV 86 MCH 29.3 MCHC 33.9 RDW 15.0 H Plt Count 188 Seg Neutrophils % 68.9 Lymphocytes % 22.1 Monocytes % 6.9 Eosinophils % 1.5 Basophils % 0.6 Absolute Neutrophils 5.9 Absolute Lymphocytes 1.9 Absolute Monocytes 0.6 Absolute Eosinophils 0.1 Absolute Basophils 0.0 08/22/17 16:30 CK-MB (CK-2) 4.24 Troponin I 0.436 Impressions: Chest X-Ray 08/22/17 09:47 IMPRESSION: POSSIBLE EARLY VASCULAR CONGESTION. NO OTHER SIGNIFICANT FINDINGS. Plan Time Spent: Greater than 30 Minutes
[2017-08-22 20:28] VITALS: BP 154/98
[2017-08-22] MEDS ORDERED: CLOPIDOGREL BISULFATE 75 MG TABLET PO ONE (20:30)
[2017-08-22] MEDS ORDERED: ACETAMINOPHEN 325 MG TABLET PO ONE (21:00)
[2017-08-22 21:02] LABS: CREATINE KINASE MB 5.69 ng/mL (<4.55)
[2017-08-22 21:08] LABS: TROPONIN I 1.04 ng/mL
[2017-08-22] MEDS ORDERED: DICLOFENAC SODIUM 50 MG TABLET.DR PO SCH (22:00)
[2017-08-22] MEDS ORDERED: ATORVASTATIN CALCIUM 80 MG TABLET PO SCH (22:00)
--- NOTE | 2017-08-23 03:54 | EKG REPORT ---
SEVERITY:- ABNORMAL ECG - SINUS RHYTHM FIRST DEGREE AV BLOCK NONSPECIFIC INTRAVENTRICULAR CONDUCTION DELAY ABNRM R PROG, CONSIDER ASMI OR LEAD PLACEMENT : Confirmed by: Adrienne Gay MD 23-Aug-2017 03:54:20
[2017-08-23] MEDS ORDERED: LANSOPRAZOLE 30 MG TAB.RAP.DR PO SCH (06:00)
[2017-08-23] MEDS ORDERED: LISINOPRIL 10 MG TABLET PO SCH (10:00)
[2017-08-23] MEDS ORDERED: (PENDING PHARMACY ID) (Benazepril Hcl [Benazepril Hcl] 40 MG) PO SCH (10:00)
[2017-08-23] MEDS ORDERED: BUSPIRONE HCL 10 MG TABLET PO SCH (10:00)
[2017-08-23] MEDS ORDERED: DICLOFENAC SODIUM 100 MG PO SCH (10:00)
[2017-08-23] MEDS ORDERED: DICLOFENAC SODIUM 50 MG TABLET.DR PO SCH (10:00)
[2017-08-23] MEDS ORDERED: FUROSEMIDE 20 MG TABLET PO SCH (10:00)
[2017-08-23] MEDS ORDERED: ASPIRIN 325 MG TABLET, ENT COATED PO SCH (10:00)
[2017-08-23] MEDS ORDERED: BENAZEPRIL HCL 20 MG TABLET PO SCH (10:00)
[2017-08-23] MEDS ORDERED: DOXAZOSIN MESYLATE 4 MG TABLET PO SCH (10:00)
== END 2017-08-22 22:30 | disposition short-term general hospital (02) ==
LOC: ER 08:58 → EH 13:11 → UNDOADMOB 13:32 → EH 13:32 → 5 16:05
PROVIDERS: ADMIT Family Medicine; ATTEND Family Medicine
DX: I21.4 Non-ST elevation (NSTEMI) myocardial infarction (principal); E11.9 Type 2 diabetes mellitus without complications; I10 Essential (primary) hypertension; G47.33 Obstructive sleep apnea (adult) (pediatric); G89.4 Chronic pain syndrome; F41.9 Anxiety disorder, unspecified; E66.01 Morbid (severe) obesity due to excess calories; R60.0 Localized edema; R41.0 Disorientation, unspecified; M19.90 Unspecified osteoarthritis, unspecified site; M54.9 Dorsalgia, unspecified; M25.519 Pain in unspecified shoulder; Z68.43 Body mass index [BMI] 50.0-59.9, adult; Z79.899 Other long term (current) drug therapy; Z86.711 Personal history of pulmonary embolism; Z87.891 Personal history of nicotine dependence; Z82.49 Family history of ischemic heart disease and other diseases of the circulatory system
CPT/HCPCS: 93005 ×2; 99285; 96374; 36415; 82553; 82550; 85025; 85610; 85730; 80053; 84484; 80307; 71020; 93010; J1644 ×2; J1940; J3490

== ENCOUNTER 2018-04-25 12:26 | Emergency (ER) | payer BC, MEDICARE ==
--- NOTE | 2018-04-25 13:35 | ER Document Report ---
ED General - General Chief Complaint: Laceration Stated Complaint: FACIAL LACERATION Time Seen by Provider: 04/25/18 13:17 Mode of Arrival: Ambulatory Information source: Patient, Relative Notes: 58-year-old male presents with complaints of laceration to his face. Injury occurred just prior to arrival. Patient notes some glass broke and cut his face tetanus was updated 2016 no injury of the eye there was bleeding noted the bleeding has since stopped TRAVEL OUTSIDE OF THE [place] IN LAST 30 DAYS: No - HPI Onset: Just prior to arrival Onset/Duration: Sudden Quality of pain: No pain Severity: Mild Pain Level: Denies Associated symptoms: Other Exacerbated by: Denies Relieved by: Denies Similar symptoms previously: No Recently seen / treated by doctor: No - Related Data Allergies/Adverse Reactions: No Known Allergies Allergy (Verified 04/25/18 12:29) Past Medical History - Social History Smoking Status: Former Smoker Cigarette use (# per day): No Chew tobacco use (# tins/day): No Smoking Education Provided: No Frequency of alcohol use: None Drug Abuse: None Family History: CAD, CVA, Other - Pulmonary embolism Patient has suicidal ideation: No Patient has homicidal ideation: No - Past Medical History Cardiac Medical History: Reports: Hx Heart Attack, Hx Hypertension Pulmonary Medical History: Reports: Hx Sleep Apnea Renal/ Medical History: Reports: Hx Kidney Stones. Denies: Hx Peritoneal Dialysis Musculoskeltal Medical History: Reports Hx Arthritis Psychiatric Medical History: Denies: Hx Depression Past Surgical History: Reports: Hx Kidney (Renal Surgery) - Immunizations Hx Diphtheria, Pertussis, Tetanus Vaccination: Yes - 2014 Review of Systems - Review of Systems Notes: REVIEW OF SYSTEMS: CONSTITUTIONAL : Denies fever, chills, or sweats. Denies recent illness. EENT: Denies eye, ear, throat, or mouth pain or symptoms. Denies nasal or sinus congestion or discharge. Denies throat, tongue, or mouth swelling or difficulty swallowing. CARDIOVASCULAR: Denies chest pain. Denies palpitations or racing or irregular heart beat. Denies ankle edema. RESPIRATORY: Denies cough, cold, or chest congestion. Denies shortness of breath, difficulty breathing, or wheezing. GASTROINTESTINAL: Denies abdominal pain or distention. Denies nausea, vomiting , or diarrhea. Denies blood in vomitus, stools, or per rectum. Denies black, tarry stools. Denies constipation. GENITOURINARY: Denies difficulty urinating, painful urination, burning, frequency, blood in urine, or discharge. MUSCULOSKELETAL: Denies back or neck pain or stiffness. Denies joint pain or swelling. SKIN: Facial laceration HEMATOLOGIC : Denies easy bruising or bleeding. LYMPHATIC: Denies swollen, enlarged glands. NEUROLOGICAL: Denies confusion or altered mental status. Denies passing out or loss of consciousness. Denies dizziness or lightheadedness. Denies headache. Denies weakness or paralysis or loss of use of either side. Denies problems with gait or speech. Denies sensory loss, numbness, or tingling. Denies seizures. PSYCHIATRIC: Denies anxiety or stress. Denies depression, suicidal ideation, or homicidal ideation. ALL OTHER SYSTEMS REVIEWED AND NEGATIVE. Dictation was performed using [employer] voice recognition software PHYSICAL EXAMINATION: GENERAL: Well-appearing, well-nourished and in no acute distress. HEAD: Atraumatic, normocephalic. EYES: Pupils equal round extraocular movements intact, conjunctiva are normal. ENT: Nares patent NECK: Normal range of motion LUNGS: No respiratory distress Musculoskeletal: Normal range of motion NEUROLOGICAL: Normal speech, normal gait. PSYCH: Normal mood, normal affect. SKIN: Superficial laceration of the left forehead and left cheek in vertical fashion Physical Exam - Vital signs Vitals: Temp Pulse Resp BP Pulse Ox 97.9 F 85 18 129/84 H 95 04/25/18 12:37 04/25/18 12:37 04/25/18 12:37 04/25/18 12:37 04/25/18 12:37 Course - Re-evaluation Re-evalutation: 04/25/18 13:40 Patient's laceration is quite superficial there is no involvement of the eye itself, and the patient looks well will be treated with wound care Patient otherwise in no distress tetanus is up-to-date After performing a Medical Screening Examination, I estimate there is LOW risk for OPEN FRACTURE, COMPARTMENT SYNDROME, TENDON RUPTURE, ACUTE NEUROVASCULAR INJURY, or RETAINED FOREIGN BODY, thus I consider the discharge disposition reasonable. Also, there is no evidence or peritonitis, sepsis, or toxicity. I have reevaluated this patient multiple times and no significant life threatening changes are noted. The patient and I have discussed the diagnosis and risks, and we agree with discharging home with close follow-up with the understanding that symptoms and presentations can change. We also discussed returning to the Emergency Department immediately if new or worsening symptoms occur. We have discussed the symptoms which are most concerning (e.g., changing or worsening pain, fever, numbness, weakness, cool or painful digits) that necessitate immediate return. - Vital Signs Vital signs: Temp Pulse Resp BP Pulse Ox 97.9 F 85 18 129/84 H 95 04/25/18 12:37 04/25/18 12:37 04/25/18 12:37 04/25/18 12:37 04/25/18 12:37 Discharge - Discharge Clinical Impression: Facial laceration Qualifiers: Encounter type: initial encounter Qualified Code(s): S01.81XA - Laceration without foreign body of other part of head, initial encounter Condition: Stable Disposition: HOME, SELF-CARE Instructions: Antibiotic Ointment Protection ([facility]), Laceration Care ([facility]) Additional Instructions: Follow up with your physician tomorrow for further care or return to the ED IMMEDIATELY if symptoms worsen or new concerns occur. If you cannot afford to follow up with your primary care physician a list of low cost clinics have been provided at the end of your discharge papers as well.
[2018-04-25 13:56] VITALS: BP 125/77
== END 2018-04-25 13:56 | disposition home or self-care (01) ==
LOC: ER 12:26
DX: S01.81XA Laceration without foreign body of other part of head, initial encounter (principal); W25.XXXA Contact with sharp glass, initial encounter; Z87.891 Personal history of nicotine dependence; I25.2 Old myocardial infarction; I10 Essential (primary) hypertension
CPT/HCPCS: 99282

== ENCOUNTER 2018-07-02 10:28 | Day surgery (SDC) | payer BC, MEDICARE ==
[2018-06-26 09:55] LABS: HEMATOCRIT 42.4 % (37.9-51.0); HEMOGLOBIN 14.2 g/dL (13.5-17.0); MEAN CORPUSCULAR HEMOGLOBIN 29.4 pg (27.0-33.4); MEAN CORPUSCULAR HGB CONC 33.6 g/dL (32.0-36.0); MEAN CORPUSCULAR VOLUME 88 fl (80-97); PLATELET COUNT 242 10^3/uL (150-450); RED BLOOD COUNT 4.84 10^6/uL (4.35-5.55); RED CELL DISTRIBUTION WIDTH 14.9 % (11.5-14.0); WHITE BLOOD COUNT 6.2 10^3/uL (4.0-10.5)
[~2018-07-02 10:28] MED LIST: ACETAMINOPHEN 325 MG TABLET PO PRN; CEFAZOLIN 1 GM/D5W RTU 1 GM/50 ML RTUPB IV PRN; LACTATED RINGERS 1000 ML IV PRN; LIDOCAINE 0.5% INJ-PF (5 MG/ML) 50 ML SDV SUBCUT PRN
[2018-07-02] MEDS ORDERED: BUPIVACAINE HCL 0.25 % INJ/PF (2.5 MG/1 ML) 30 ML VIAL ONE (13:28)
[2018-07-02] MEDS ORDERED: FENTANYL CITRATE INJ/PF 100 MCG/2 ML AMPUL ONE (13:32)
[2018-07-02] MEDS ORDERED: PROPOFOL INJ 200 MG/20 ML VIAL IV ONE (13:33)
[2018-07-02] MEDS ORDERED: DEXAMETHASONE SOD PHOSPHATE INJ 4 MG/1 ML VIAL ONE (13:33)
[2018-07-02] MEDS ORDERED: ONDANSETRON HCL INJ/PF 4 MG/2 ML SDV ONE (13:33)
[2018-07-02] MEDS ORDERED: MIDAZOLAM 2 MG/2 ML INJ ONE (13:33)
[2018-07-02] MEDS ORDERED: HYDROMORPHONE HCL INJ/PF 2 MG/ML AMPULE ONE (13:33)
[2018-07-02] MEDS ORDERED: EPHEDRINE SULFATE INJ 50 MG/1 ML AMPULE ONE (13:33)
[2018-07-02] MEDS ORDERED: ACETAMINOPHEN 1,000 MG/100 ML RTUPB IV ONE (13:57)
[2018-07-02] MEDS ORDERED: DIPHENHYDRAMINE HCL 50 MG/ML VIAL IV PRN (14:22)
[2018-07-02] MEDS ORDERED: PROMETHAZINE HCL INJ 25 MG/1 ML VIAL IV PRN (14:22)
[2018-07-02] MEDS ORDERED: MEPERIDINE HCL/PF INJ 25 MG/1 ML DISP.SYRIN IV PRN (14:22)
[2018-07-02] MEDS ORDERED: FENTANYL CITRATE INJ/PF 100 MCG/2 ML AMPUL IV PRN ×3 (14:22)
[2018-07-02] MEDS ORDERED: OXYCODONE-ACETAMINOPHEN 5-325 MG TABLET PO PRN (15:12)
--- NOTE | 2018-07-02 15:12 | Discharge Summary ---
Discharge Summary (SDC) - Discharge Final Diagnosis: umbilical hernia Date of Surgery: 07/02/18 Discharge Date: 07/02/18 Condition: Stable Treatment or Instructions: [facility] [address] [place] [id number] Discharge Instructions: Laparoscopic Surgery 1. General Information: a. DO NOT DRIVE a car or operate dangerous machinery for 3-4 days or while taking narcotic pain pills. b. DO NOT consume alcohol, tranquilizers, sleeping medications or any non- prescribed medications for 24 hours unless approved by your doctor or as long as taking narcotic prescription medications. c. DO NOT make important decisions or sign any important papers for the first 24 hours after surgery. d. When discharged home the same day of surgery have a responsible person with you for the first night. 2. Activity Restrictions: 8 weeks. a. NO heavy lifting, straining abdominal muscles, bending over a lot, yard work, house work, or sports for [address] for 3-4 days . c. It is fine to go for walks, up and down steps, ride in a car. d. Elevate your head when sleeping/resting. 3. Treatment: a. You may shower 24 hours after surgery, no baths or swimming for 2 weeks. Remove band-aids or dressings before shower but leave paper strips (steri-strips ) on the skin to fall off on their own. If still on at postoperative visit they will be removed then. b. Drainage of fluid or blood is not unusual from an incision. If occurs, you can clean with peroxide and cotton ball daily and cover with dry gauze until the wound seals. c. If a lot of bleeding occurs, you can hold pressure with a gauze or cloth over the site for 10 minutes and it will usually stop. If bleeding continues you will need to call for possible evaluation in office or emergency room. 4. Medications: a. _Toradol_ may be taken for pain as needed, one tablet every 6 hours. b. You should resume all normal medications unless a change is specified by your doctors. 5. Diet: __ Normal diet 6. The following may occur after laparoscopic surgery: a. Shoulder or upper back ache from retained gas that should resolve in 1-2 days b. Soreness and bruising at incision sites will resolve with time. c. Scrotal swelling (labia in women) and bruising is often seen after hernia surgery. d. Sore throat e. Fatigue may last days to weeks. f. Difficulty urinating may occur and may need to come into emergency room for urinary catheter placement. 7. Notify Physician If: a. Worsening or pain not improved with pain medication b. Persistent nausea and vomiting c. Fever above 101 d. Persistent bleeding or swelling at operative site e. Unable to urinate and uncomfortable bladder 6-8 hours after surgery 8..Follow Up Care: a. Schedule a follow up appointment with your doctor for 2 weeks. In the event of any postoperative problems or questions or you may call the office during business hours or the On-Call physician evenings and weekends at [facility]. [facility] I understand the instructions for my postoperative care as described above and a copy has been given to me. Patient/Significant Other Witness Date Prescriptions: Oxycodone HCl/Acetaminophen [Percocet 5-325 mg Tablet] 1 tab PO ASDIR PRN #20 tab PRN Reason: Referrals: KATHYA MCGREGOR PA [Primary Care Provider] - Discharge Diet: As Tolerated Discharge Activity: No Lifting/Push/Pulling, Walk Frequently Report the Following to Your Physician Immediately: Nausea, Vomiting, Fever over 101 Degrees, Unusual Bleeding, Redness, Increased Soreness
[2018-07-02] MEDS ORDERED: SUCCINYLCHOLINE CHLORIDE INJ 200 MG/10 ML VIAL ONE (15:15)
[2018-07-02] MEDS ORDERED: ROCURONIUM BROMIDE INJ 50 MG/5 ML VIAL IV ONE (15:15)
--- NOTE | 2018-07-02 15:35 | Operative Report ---
Operative Report DATE OF SURGERY: 07/02/18 PREOPERATIVE DIAGNOSIS: 1. Morbid obesity. 2. Incarcerated umbilical hernia POSTOPERATIVE DIAGNOSIS: Same OPERATION: 1. Reduction of incarcerated umbilical hernia. 2. Primary laparoscopic repair of umbilical hernia with intraperitoneal placement of mesh SURGEON: TSERING CAMACHO 1ST CORPORATE EXECUTIVE: BRYAN MILLER ANESTHESIA: GA TISSUE REMOVED OR ALTERED: See below COMPLICATIONS: None ESTIMATED BLOOD LOSS: Scant INTRAOPERATIVE FINDINGS: See below PROCEDURE: The patient was taken from the preop holding area to the main operating room where general anesthesia was induced. The abdomen was exposed, prepped and draped in sterile fashion. Surgical plan and surgical timeout were connected. Instrumentation was set up for laparoscopic ventral wall hernia repair. Skin markings were made, and skin anesthetized with quarter percent Marcaine for planned 3 port laparoscopy. The incarcerated umbilical hernia was reduced under gentle pressure. A left upper quadrant stab was made with a knife, Veress needle inserted peritoneal cavity and pneumoperitoneum was established. The Veress needle was removed, and a 5 mm port was inserted and a 5 mm viewing scope was inserted. 2 additional ports were placed in the peritoneal cavity one in the right mid field and one in the left lower quadrant, all under direct visualization. Findings were significant for incarcerated omentum. Using a combination of gentle extracorporeal manipulation, and electrocautery dissection, the incarcerated omentum was released from the hernia sac. There was no evidence of bleeding from the relieved omentum. In addition, portions of hernia sac were also excised. A small hole was made in the umbilical skin and this was subsequently used for passing the suture. We now proceeded to close the fascial defect with 2 [id number] #1 PDS sutures in a somewhat diagonal fashion. This was accomplished using the disposable suture passer. Peritoneal cavity was decompressed of CO2, and the not secured. We now brought onto the field and unexpired tendon half by 14 cm oval Bard mesh ventral light. It was affixed with 0 PDS sutures at the 12, 3, 6, 9:00 positions. The mass was oriented, moistened, rolled, brought in the anterior abdominal wall through one of the port sites. The mesh was unrolled, and brought up to the anterior abdominal wall using the disposable suture passer. Knots were secured. We now came back around in a circumferential fashion and secured the mesh in the intervening sections with absorbatac staple saw feeder. Concluding photos were obtained. There was no evidence of bleeding. We check for visceral none. This point we felt the operation was complete. Sponge and needle counts are correct. All ports removed under direct visualization, pneumoperitoneum evacuated wounds closed with 3-0 Vicryl suture. Patient did tolerate the procedure well, was extubated, and taken to recovery in stable condition. The physician assistant professor of drama, Ms. Grace, provided assistance during this case by: Assisting and port insertion, retracting tissue, instillation of local anesthesia and closure of skin incisions.
[2018-07-02] MEDS: FENTANYL CITRATE INJ/PF 100 MCG/2 ML AMPUL ONE ×2 (15:53→15:58)
[2018-07-02 18:24] VITALS: BP 130/74
== END 2018-07-02 18:05 | disposition home or self-care (01) ==
LOC: OROUT 10:28
PROVIDERS: ATTEND Surgery
DX: K42.9 Umbilical hernia without obstruction or gangrene (principal); I20.9 Angina pectoris, unspecified; G47.33 Obstructive sleep apnea (adult) (pediatric); R06.02 Shortness of breath; E66.9 Obesity, unspecified; I10 Essential (primary) hypertension; Z79.01 Long term (current) use of anticoagulants; I25.2 Old myocardial infarction; Z87.891 Personal history of nicotine dependence; Z79.899 Other long term (current) drug therapy; Z79.82 Long term (current) use of aspirin; Z79.891 Long term (current) use of opiate analgesic; Z87.442 Personal history of urinary calculi; Z68.43 Body mass index [BMI] 50.0-59.9, adult; Z86.010 Personal history of colon polyps
CPT/HCPCS: 36415 ×2; 84132; 85027; 49653; C1713; C1781; J2250; J0690; J3490; J1100; J3010; A9270; J1170; J0330; J2405; J2704; J0131; 750

== ENCOUNTER → 2019-01-22 | Outpatient (CLI) | payer MEDICARE ==
--- NOTE | 2019-01-22 13:08 | XCELERA REPORT ---
[address] [place] [facility] [place] [address] Lower Extremity Venous Evaluation Procedure: Color flow and duplex imaging of the veins of the left lower extremity as well as the right Common Femoral vein. Right Sided Venous Evaluation The right common femoral vein is fully compressible. Spontaneous and phasic flow is present in the right common femoral vein. Left Sided Venous Evaluation Normal vessel filling wall to wall, compression and augmentation as well as Colour flow down to the infrageniculate veins. Interpretation Summary No duplex evidence of DVT or obstruction in the left lower extremity nor in the right Common Femoral vein. Name: CARMELO SIDHU Jaren Age: 59 yrs Gender: Male : 1960 Patient Status: Outpatient Patient Location: Study Date: 01/22/2019 11:34 AM Reason For Study: LT KNEE PAIN Ordering Physician: KATHYA MCGREGOR Performed By: Gerardo Novak : KATHYA MCGREGOR > Baljinder Jiang
== END ==
LOC: SP 11:38
PROVIDERS: ATTEND Physician Assistant
DX: M25.562 Pain in left knee (principal)
CPT/HCPCS: 93971

== ENCOUNTER 2019-04-04 20:01 | Emergency (ER) | payer MEDICARE ==
[2019-04-04 20:33] LABS: ABSOLUTE BASOPHILS # (AUTO) 0.1 10^3/uL (0.0-0.2); ABSOLUTE EOSINOPHILS # (AUTO) 0.1 10^3/uL (0.0-0.6); ABSOLUTE LYMPHOCYTES (AUTO) 1.9 10^3/uL (0.5-4.7); ABSOLUTE MONOCYTES (AUTO) 0.7 10^3/uL (0.1-1.4); ABSOLUTE NEUT (AUTO) 5.9 10^3/uL (1.7-8.2); EOSINOPHILS % (AUTO) 0.8 % (0-6); HEMATOCRIT 40.8 % (37.9-51.0); HEMOGLOBIN 13.7 g/dL (13.5-17.0); LYMPHOCYTES % (AUTO) 22.3 % (13-45); MEAN CORPUSCULAR HEMOGLOBIN 28.9 pg (27.0-33.4); MEAN CORPUSCULAR HGB CONC 33.5 g/dL (32.0-36.0); MEAN CORPUSCULAR VOLUME 86 fl (80-97); MONOCYTES % (AUTO) 7.9 % (3-13); PLATELET COUNT 203 10^3/uL (150-450); RED BLOOD COUNT 4.73 10^6/uL (4.35-5.55); RED CELL DISTRIBUTION WIDTH 14.6 % (11.5-14.0); TOTAL CELLS COUNTED % (AUTO) 100 %; WHITE BLOOD COUNT 8.7 10^3/uL (4.0-10.5)
--- NOTE | 2019-04-04 20:33 | ER Document Report ---
ED General - General Chief Complaint: Arm Pain Stated Complaint: ARM PAIN Time Seen by Provider: 04/04/19 20:06 Primary Care Provider: KATHYA FRANCOIS PA-C [Primary Care Provider] - Follow up as needed Mode of Arrival: Medic Information source: Patient TRAVEL OUTSIDE OF THE [place] IN LAST 30 DAYS: No - HPI Notes: Patient is a 59-year-old male with a history of an NSTEMI, sleep apnea, anxiety, hypertension, hyperlipidemia who presents to the emergency department with the chief complaint of left shoulder pain. States around 9 AM this morning he was laying on his left side on the ground working on the house when he developed left shoulder pain. Patient initially thought that it was muscle related but as the day progressed patient reports that the pain has become more severe. Patient reports that the pain is intermittent. Patient denies chest pain or shortness of breath. Patient denies palpitations. Patient denies any nausea vomiting or diarrhea or abdominal pain. Patient states that he attempted cold compresses, frequent position changes to the area but when that did not work he took 1 of his Percocet at home. Patient reports that was a 5 mg Percocet that he has for his bilateral knee pain. Patient states that nothing seemed to make the left shoulder pain worse or better. Patient states that when the pain would intensify would radiate down his left arm. - Related Data Allergies/Adverse Reactions: No Known Allergies Allergy (Verified 04/04/19 21:43) Past Medical History - General Information source: Patient - Social History Smoking Status: Unknown if Ever Smoked Frequency of alcohol use: None Drug Abuse: None Lives with: Spouse/Significant other Family History: CAD, CVA, Other - Past Medical History Cardiac Medical History: Reports: Hx Heart Attack - Jul, Hx Hypertension Denies: Hx Coronary Artery Disease Pulmonary Medical History: Reports: Hx Sleep Apnea Denies: Hx Asthma, Hx Bronchitis, Hx COPD, Hx Pneumonia Neurological Medical History: Reports: None. Denies: Hx Cerebrovascular Accident, Hx Seizures Endocrine Medical History: Reports: None Renal/ Medical History: Reports: Hx Kidney Stones. Denies: Hx Peritoneal Dialysis Malignancy Medical History: Reports None GI Medical History: Reports: None Musculoskeletal Medical History: Reports Hx Arthritis - "head to toe" Skin Medical History: Reports None Psychiatric Medical History: Reports: None Denies: Hx Depression Traumatic Medical History: Reports: None Infectious Medical History: Reports: None Past Surgical History: Reports: Hx Kidney (Renal Surgery), Hx Umbilical Hernia - Immunizations Hx Diphtheria, Pertussis, Tetanus Vaccination: No - Unsure Review of Systems - Review of Systems Constitutional: No symptoms reported EENT: No symptoms reported Cardiovascular: No symptoms reported Respiratory: No symptoms reported Gastrointestinal: No symptoms reported Genitourinary: No symptoms reported Male Genitourinary: No symptoms reported Musculoskeletal: See HPI Skin: No symptoms reported Hematologic/Lymphatic: No symptoms reported Neurological/Psychological: No symptoms reported Physical Exam - Vital signs Vitals: Temp 98.1 F 04/04/19 20:04 - Notes Notes: GENERAL: Well-appearing, well-nourished and in no acute distress. HEAD: Atraumatic, normocephalic. EYES: Pupils equal round and reactive to light, extraocular movements intact, sclera anicteric, conjunctiva are normal. ENT: Nares patent, oropharynx clear without exudates. Moist mucous membranes. NECK: Normal range of motion, supple without lymphadenopathy or JVD. LUNGS: Breath sounds clear to auscultation bilaterally and equal. No wheezes rales or rhonchi. HEART: Regular rate and rhythm without murmurs, rubs or gallops. No reproducible chest pain with palpation. ABDOMEN: Obese, Soft, nontender, normoactive bowel sounds. No guarding, no rebound. No masses appreciated. EXTREMITIES: Normal range of motion, no pitting or edema. No clubbing or cyanosis. Bilateral strong + 2 dorasalis pedis pulses. NEUROLOGICAL: Cranial nerves II through XII grossly intact. Normal speech. PSYCH: Normal mood, normal affect. SKIN: Warm, Dry, normal turgor, no rashes or lesions noted. Course - Re-evaluation Re-evalutation: 04/04/19 20:43 Upon initial assessment patient is sitting upright on stretcher in no acute distress. Patient does have full range of motion to the left shoulder joint. Patient denies chest pain, palpitations, shortness of breath. Due to patient's cardiac history and non specific complaint will obtain cardiac workup. Patient comfortable rating his pain a 2 out of 5 at this time. 04/04/19 22:14 Upon reevaluation patient is resting comfortably on stretcher texting on cell phone. Patient states "feeling great," he denies chest pain or shortness of breath. Patient continues to have full range of motion to the left shoulder joint. Patient is a sinus rhythm on the monitor with a rate of 64. Updated patient on lab results and that we will repeat a Troponin, which is a cardiac enzyme and a few hours. Patient verbalized understanding and denies needs at this time. 04/05/19 00:53 Patient second Troponin was negative. Upon reevaluation patient denies shoulder pain. Patient denies chest pain or shortness of breath. Patient denies palpitations, patient does have the occasional PVC on the monitor. Discussed strict return precautions with patient to include chest pain, shortness of b reath, worsening left shoulder pain, numbness or tingling, dizziness, severe headache, or any other concerning signs or symptoms. Patient verbalized understanding and states he is comfortable going home. - Vital Signs Vital signs: Temp Pulse Resp BP Pulse Ox 98.1 F 17 144/91 H 95 04/05/19 01:01 04/05/19 01:01 04/05/19 01:01 04/05/19 01:01 - Laboratory Result Diagrams: 04/04/19 20:19 04/04/19 20:19 Laboratory results interpreted by me: 04/04/19 04/04/19 20:19 20:19 RDW 14.6 H BUN 21 H - Diagnostic Test Radiology reviewed: Reports reviewed - EKG Interpretation by Me Additional EKG results interpreted by me: 04/04/19 20:32 Patient EKG shows a sinus rhythm with a rate of 69. Patient does have a first- degree AV block, left axis deviation, no T wave inversions or ST segment elevation in consecutive leads. Discharge - Discharge Clinical Impression: Left shoulder pain Qualifiers: Chronicity: acute Qualified Code(s): M25.512 - Pain in left shoulder Condition: Stable Disposition: HOME, SELF-CARE Additional Instructions: Today you were evaluated in the emergency department for left shoulder and left arm pain. We did obtain a cardiac work-up which included 2 cardiac enzymes. These were negative. Your blood work and chest x-ray were unremarkable as well as your EKG. It is unsure what has caused your left shoulder pain. This could be musculoskeletal as it occurred while you are laying on your left side and working on the house. Please return to the emergency department if you have chest pain, palpitations, shortness of breath, worsening shoulder pain, numbness or tingling, dizziness, or any other concerning signs or symptoms. Referrals: KATHYA FRANCOIS PA-C [Primary Care Provider] - Follow up as needed
[2019-04-04 20:52] LABS: ALANINE AMINOTRANSFERASE 43 U/L (21-72); ALBUMIN 4.1 g/dL (3.5-5.0); ALKALINE PHOSPHATASE 69 U/L (38-126); ANION GAP 10 (5-19); ASPARTATE AMINO TRANSFERASE 28 U/L (17-59); BILIRUBIN,DIRECT 0.2 mg/dL (0.0-0.4); BILIRUBIN,TOTAL 0.8 mg/dL (0.2-1.3); BLOOD UREA NITROGEN 21 mg/dL (7-20); CALCIUM 9.7 mg/dL (8.4-10.2); CARBON DIOXIDE 27 mmol/L (22-30); CHLORIDE 103 mmol/L (98-107); GLUCOSE 96 mg/dL (75-110); POTASSIUM 4.1 mmol/L (3.6-5.0); SODIUM 140.2 mmol/L (137-145); TOTAL PROTEIN 6.9 g/dL (6.3-8.2)
--- NOTE | 2019-04-04 20:53 | RADIOLOGY REPORT (SQ) ---
EXAM DESCRIPTION: XR CHEST 1 VIEW COMPLETED DATE/TME: 04/04/2019 20:26 CLINICAL HISTORY: 59 years, Male, shoulder pain COMPARISON: Prior study from 08/22/2017 NUMBER OF VIEWS: Two TECHNIQUE: Two frontal radiographs of the chest were obtained LIMITATIONS: None. FINDINGS: Cardiac and mediastinal contours are stable. Lungs are clear. No pleural effusion or pneumothorax. IMPRESSION: No acute disease. copyright 2010 [employer] All Rights Reserved
--- NOTE | 2019-04-04 23:25 | EKG REPORT ---
SEVERITY:- ABNORMAL ECG - SINUS RHYTHM FIRST DEGREE AV BLOCK NONSPECIFIC IVCD WITH LAD : Confirmed by: Adrienne Gay MD 04-Apr-2019 23:24:40
[2019-04-05 01:25] VITALS: BP 144/91
== END 2019-04-05 01:25 | disposition home or self-care (01) ==
LOC: ER 20:01
DX: M25.512 Pain in left shoulder (principal); I25.2 Old myocardial infarction; I10 Essential (primary) hypertension; Z79.899 Other long term (current) drug therapy
CPT/HCPCS: 36415; 71045; 80053; 84484; 85025; 93005; 93010; 99284